=== PATIENT | male | born 1995 | race Caucasian/White ===

== ENCOUNTER → 2023-01-02 | Outpatient (CLI) | payer OTHER | LOC: M PLAIMG 14:56 | PROVIDERS: ATTEND Nurse Practitioner Family | DX: J32.9 Chronic sinusitis, unspecified (principal); J31.0 Chronic rhinitis ==

== ENCOUNTER → 2023-09-19 | Outpatient (REF) | LOC: M LAB 12:23 | PROVIDERS: ATTEND Family Medicine | DX: Z00.00 Encounter for general adult medical examination without abnormal findings (principal) ==